=== PATIENT | female | born 1970 | race Two or more races ===

== ENCOUNTER 2016-10-04 05:19 | Inpatient (IN) | payer BC ==
[~2016-10-04] VITALS: Ht 162.6 cm; Wt 86.5 kg
[2016-10-04 06:15] LABS: Basophils # (auto) 0 uL; Basophils % (auto) 0.3 % (0.0-2.0); Eosinophils # (auto) 0.1 uL; Eosinophils % (auto) 0.7 % (0.0-7.0); Hematocrit 42.8 % (36.0-46.0); Hemoglobin 14.1 g/dL (12.2-16.2); Lymphocytes # (auto) 2.5 uL; Lymphocytes % (auto) 20.2 % (10.0-50.0); Mean Corpuscular Hgb Conc. 32.8 g/dL (32.0-36.0); Mean Corpuscular Volume 91.4 fL (80.0-100.0); Mean Platelet Volume 9.5 fL (7.4-10.4); Monocytes % (auto) 7.9 % (0.0-12.0); Neutrophils # (auto) 8.6 uL; Neutrophils % (auto) 70.9 % (37.0-80.0); Platelet Count (auto) 424 10^3/uL (140-450); Red Cell Distribution Width 13.7 % (11.6-16.0); White Blood Cell 12.2 10^3/uL (4.4-10.8)
[2016-10-04 06:17] LABS: Urine Bilirubin Negative (Negative); Urine Blood TRACE /uL (Negative); Urine Color Yellow (Yellow); Urine Glucose Normal (Normal); Urine Hyaline Cast FEW /lpf (0 - 2); Urine Ketone Negative (Negative); Urine Mucus FEW (None Seen); Urine Nitrite Negative (Negative); Urine RBC 2 /hpf (0 - 4); Urine Squamous Epithelial Cell FEW /hpf (<5)
[2016-10-04 06:43] LABS: BUN/Creatinine Ratio 13.1; Calcium 9.1 mg/dL (8.5-10.1); Potassium 3.8 mmol/L (3.5-5.1); Total Protein 8.5 g/dL (6.4-8.2)
[2016-10-04] MEDS ORDERED: IOHEXOL 300 MG/ML 100ML BOTTLE IJ ONE (07:13)
[2016-10-04] MEDS ORDERED: ONDANSETRON HCL 4 MG/2 ML VIAL IV ONE ×2 (07:15→10:15)
[2016-10-04] MEDS ORDERED: HYDROmorphone HCL 2 MG/ML VL IV ONE ×2 (07:15→10:15)
[2016-10-04] MEDS ORDERED: SODIUM CHLORIDE 0.9% 1,000 ML IV ONE (07:15)
[2016-10-04] MEDS ORDERED: cefTRIAXone 1GM/50ML D5W 50 ML IV ONE (10:45)
[2016-10-04] MEDS: SODIUM CHLORIDE 0.9% 1,000 ML IV SCH (10:46)
[2016-10-04] MEDS ORDERED: TEMAZEPAM 15 MG CAP PO PRN (11:00)
[2016-10-04] MEDS ORDERED: ACETAMINOPHEN 325 MG TAB PO PRN (11:00)
[2016-10-04] MEDS ORDERED: MORPHINE SULF INJ 2 MG/ML SYRINGE 1ML IV PRN ×2 (11:00)
[2016-10-04] MEDS ORDERED: NITROGLYCERIN 0.4 MG SL TAB SL PRN (11:00)
[2016-10-04] MEDS ORDERED: cloNIDine HCL 0.1 MG TAB PO PRN (11:00)
[2016-10-04] MEDS ORDERED: DOCUSATE SOD 100 MG CAP PO PRN (11:00)
[2016-10-04] MEDS ORDERED: HYDROcodone-ACET 5/325MG TAB PO PRN (11:00)
[2016-10-04] MEDS ORDERED: FLUoxetine HCL 20 MG CAP PO ONE (11:15)
[2016-10-04] MEDS: metroNIDAZOLE 500MG/100ML 100 ML IV SCH ×2 (12:00→19:57)
[2016-10-04 12:20] LABS: INR 1.08 (0.9-1.15); Prothrombin Time 11.1 sec (9.37-12.3)
[2016-10-04] MEDS: FAMOTIDINE 20 MG TAB PO SCH ×2 (12:20→21:24)
[2016-10-04] MEDS: MULTIPLE VITAMIN TAB PO SCH (12:20)
[2016-10-04] MEDS ORDERED: FLUO20CA19 PO (14:59)
[2016-10-04] MEDS ORDERED: GOLYTELY 4L KIT PO ONE (15:00)
[2016-10-04] MEDS: ONDANSETRON HCL 4 MG/2 ML VIAL IV PRN ×2 (15:17→19:56)
[2016-10-04] MEDS: HYDROmorphone HCL 2 MG/ML VL IV PRN ×2 (15:18→19:57)
[2016-10-04 17:02] VITALS: BP 160/96
[2016-10-04 22:00] VITALS: BP 133/75
[2016-10-05] MEDS: ONDANSETRON HCL 4 MG/2 ML VIAL IV PRN ×3 (01:52→14:50)
[2016-10-05] MEDS: HYDROmorphone HCL 2 MG/ML VL IV PRN ×3 (01:52→14:50)
[2016-10-05] MEDS: SODIUM CHLORIDE 0.9% 1,000 ML IV SCH (03:26)
[2016-10-05] MEDS: metroNIDAZOLE 500MG/100ML 100 ML IV SCH ×2 (04:05→12:00)
[2016-10-05 05:00] VITALS: BP 133/80
[2016-10-05 05:22] LABS: Basophils # (auto) 0.2 uL; Basophils % (auto) 1.5 % (0.0-2.0); Eosinophils # (auto) 0.1 uL; Eosinophils % (auto) 0.9 % (0.0-7.0); Hematocrit 39.9 % (36.0-46.0); Lymphocytes # (auto) 3.3 uL; Lymphocytes % (auto) 24.4 % (10.0-50.0); Mean Corpuscular Hgb Conc. 32.5 g/dL (32.0-36.0); Mean Corpuscular Volume 92.5 fL (80.0-100.0); Mean Platelet Volume 9.3 fL (7.4-10.4); Monocytes # (auto) 0.9 uL; Neutrophils % (auto) 66.2 % (37.0-80.0); Platelet Count (auto) 400 10^3/uL (140-450); Red Cell Distribution Width 13.4 % (11.6-16.0); White Blood Cell 13.6 10^3/uL (4.4-10.8)
[2016-10-05 05:38] LABS: Albumin 3.4 g/dL (3.4-5.0); Calcium 8.1 mg/dL (8.5-10.1); Potassium 3.7 mmol/L (3.5-5.1)
[2016-10-05 05:40] LABS: BUN/Creatinine Ratio 10.3
[2016-10-05 05:52] LABS: Bilirubin, Total 0.9 mg/dL (0.2-1.0); Total Protein 7.7 g/dL (6.4-8.2)
[2016-10-05 09:00] VITALS: BP 116/72
[2016-10-05] MEDS ORDERED: cefTRIAXone 1GM/50ML D5W 50 ML IV SCH (09:00)
[2016-10-05] MEDS ORDERED: SODIUM CHLORIDE LOCK 10 ML ONE (09:07)
[2016-10-05] MEDS ORDERED: diphenhdrAMINE HCL 50 MG/1 ML VL ONE (09:07)
[2016-10-05] MEDS: MULTIPLE VITAMIN TAB PO SCH (09:51)
[2016-10-05] MEDS: FAMOTIDINE 20 MG TAB PO SCH (09:52)
[2016-10-05] MEDS ORDERED: FLUoxetine HCL 20 MG CAP PO SCH (10:00)
[2016-10-05] MEDS ORDERED: CHOLESTYRAMINE 4 GM POWDER PO SCH ×2 (11:00→22:00)
[2016-10-05] MEDS ORDERED: metroNIDAZOLE 500 MG TAB PO SCH (12:00)
[2016-10-05] MEDS ORDERED: VANCOMYCIN HCL 125MG/5ML ORAL SOL PO SCH (12:00)
[2016-10-05 12:58] VITALS: BP 134/75
[2016-10-05] MEDS: MIDAZOLAM HCL 5 MG/ML-1ML VIAL ONE ×4 (13:19→13:32)
[2016-10-05] MEDS: fentaNYL CITRATE 100 MCG/2 ML VL ONE ×3 (13:19→13:26)
[2016-10-05 14:01] VITALS: BP 171/96
== END 2016-10-05 17:00 | disposition home or self-care (01) | DRG 394 ==
LOC: ER 05:28 → EAST 05:29 → TELE-CENTR 14:43
PROVIDERS: ADMIT Internal Medicine; ATTEND Internal Medicine
PROC: 0DJD8ZZ Inspection of Lower Intestinal Tract, Via Natural or Artificial Opening Endoscopic (ICD-10-PCS; principal; 2016-10-05 13:16)
DX: K64.8 Other hemorrhoids (principal); K92.1 Melena; K64.4 Residual hemorrhoidal skin tags; F32.9 Major depressive disorder, single episode, unspecified; K57.30 Diverticulosis of large intestine without perforation or abscess without bleeding; K59.00 Constipation, unspecified; N18.2 Chronic kidney disease, stage 2 (mild); Z90.49 Acquired absence of other specified parts of digestive tract; Z98.890 Other specified postprocedural states; Z98.51 Tubal ligation status
CPT/HCPCS: 36415; 45378; 74177; 80053; 81001; 81025; 85025; 85049; 85610; 87086; 87493; 94761; 96361; 96374; 96375; 96376; J0696; J2250; J2405; J3490